=== PATIENT | female | born 1995 | race Caucasian/White ===

== ENCOUNTER 2017-12-28 18:36 | Emergency (ER) | payer MEDICAID ==
[~2017-12-28] VITALS: Ht 147.3 cm; Wt 83.9 kg
[2017-12-28 18:52] VITALS: BP 128/77
--- NOTE | 2017-12-28 18:56 | NUR ---
PT TRIAGED AND SENT TO ER LOBBY
--- NOTE | 2017-12-28 20:20 | NUR ---
Reassessed. No new complaints or changes.
--- NOTE | 2017-12-28 20:55 | NUR ---
PT BROUGHT BY WHEELCHAIR TO BED 2
--- NOTE | 2017-12-28 21:03 | NUR ---
PT C/O ABDOMINAL PAIN SINCE LAST NIGHT, +N/V 10/10 ALL OVER PAIN. STATES SHE TOOK 4 PERCOCET IN LAST 24 HOURS THAT WERE NOT HERS. STATES HER BACK STARTED HURTING AFTER SHE BENT DOWN TO PICK SOMETHING UP. ABD IS SOFT NON TENDER. BOWEL SOUNDS ACTIVE X 4 QUADRANTS. IN BED, PENDING MD VALLES.
[2017-12-28 21:56] LABS: APPEARANCE,URINE CLEAR (CLEAR); COLOR,URINE YELLOW (YELLOW)
[2017-12-28 21:57] LABS: BLOOD, URINE NEGATIVE (NEGATIVE); UGLUCOSE NEGATIVE (NEGATIVE)
[2017-12-28 21:58] LABS: BILIRUBIN,URINE NEGATIVE (NEGATIVE); LEUKOCYTE ESTERASE ,URINE NEGATIVE (NEGATIVE); NITRITE, URINE NEGATIVE (NEGATIVE)
[2017-12-28] MEDS ORDERED: NACL 0.9% 1,000 ML IV ONE (22:30)
[2017-12-28] MEDS ORDERED: ONDANSETRON 4 MG/2 ML VIAL IVP ONE (22:30)
[2017-12-28 23:38] VITALS: BP 119/70
== END 2017-12-28 23:40 | disposition home or self-care (01) ==
LOC: MED 18:36
DX: E86.0 Dehydration (principal); R11.2 Nausea with vomiting, unspecified; T39.1X5A Adverse effect of 4-Aminophenol derivatives, initial encounter; Y92.89 Other specified places as the place of occurrence of the external cause
CPT/HCPCS: 81003; 81025; 96361; 96374; 99284; J2405; J7030

== ENCOUNTER 2020-03-09 22:47 | Emergency (ER) | payer SELFPAY ==
[~2020-03-09] VITALS: Ht 149.9 cm; Wt 93.0 kg
[2020-03-09 22:49] VITALS: BP 122/75
--- NOTE | 2020-03-09 22:51 | NUR ---
to bed # 05 ambulatory
--- NOTE | 2020-03-09 23:08 | NUR ---
24 YR OLD FEMALE AOX4 WITH CHIEFT COMPLAINT OF LEFT EAR PAIN. PATIENT STATES LEFT EAR PAIN HAD A SUDDEN ONSET APPROXIMATELY 1 MONTH AGO AND HAS BEEN GOING ON AND OFF. PATIENT STATES NON-RADIATING 10/10 LEFT EAR PAIN. PATIENT STATED HAS NOT SEEN ANYONE ABOUT THE LEFT EAR PAIN SINCE IT STARTED. PATIENT DENIES OTHER DISCOMFORT. BED IS LOCKED IN LOWEST POSITION. HISTORY- NONE ALLERGIES- NONE
--- NOTE | 2020-03-09 23:15 | NUR ---
MIKHAIL BENOIT AT BEDSIDE FOR MEDICAL EVALUATION.
[2020-03-10 00:15] VITALS: BP 110/73
--- NOTE | 2020-03-10 00:15 | NUR ---
Patient discharged with v/s stable. Written and verbal after care instructions given and explained. Patient alert, oriented and verbalized understanding of instructions. Ambulatory with steady gait. All questions addressed prior to discharge. ID band removed. Patient advised to follow up with PMD. Rx of NAPROSYN, OFLOXACIN, AND DEBROX given. Patient educated on indication of medication including possible reaction and side effects. Opportunity to ask questions provided and answered.
== END 2020-03-10 00:15 | disposition home or self-care (01) ==
LOC: MED 22:47
DX: H61.22 Impacted cerumen, left ear (principal)
CPT/HCPCS: 99283

== ENCOUNTER 2020-08-21 15:18 | Emergency (ER) | payer MEDICAID ==
[~2020-08-21] VITALS: Ht 152.4 cm; Wt 89.4 kg
[2020-08-21 15:26] VITALS: BP 113/65
[2020-08-21] MEDS ORDERED: ONDANSETRON 4 MG ODT PO ONE (16:00)
[2020-08-21] MEDS ORDERED: ACETAMINOPHEN 325 MG TAB PO ONE (16:00)
[2020-08-21 16:24] LABS: BASOPHILS % (AUTO) 0.2 % (0.0-2.0); HEMOGLOBIN 14.3 g/dL (12.0-16.0); LYMPHOCYTES % (AUTO) 8.1 % (20.5-51.1); MEAN CORPUSCULAR HEMOGLOBIN 30 pg (27-31); MEAN CORPUSCULAR HGB CONC 33 g/dL (33-37); MEAN CORPUSCULAR VOLUME 90.1 fL (80-94); MONOCYTES # (AUTO) 0.7 K/uL (0.8-1.0); MONOCYTES % (AUTO) 6.2 % (1.7-9.3); NEUTROPHILS % (AUTO) 85.5 % (42.2-75.2); PLATELET COUNT (AUTO) 313 K/uL (140-450); RED BLOOD CELL COUNT(AUTO) 4.78 MIL/uL (4.20-5.40); RED CELL DISTRIBUTION WIDTH 13.7 % (11.6-13.7); WHITE BLOOD COUNT (AUTO) 11.7 K/uL (4.8-10.8)
[2020-08-21 16:43] LABS: ALBUMIN 4.5 g/dL (3.4-5.0); ANION GAP 14.6 (8-16); CARBON DIOXIDE 24.9 mmol/L (21-32); CREATININE 0.9 mg/dL (0.6-1.3); POTASSIUM 3.5 mmol/L (3.5-5.1); TOTAL BILIRUBIN 0.6 mg/dL (0.0-1.0)
[2020-08-21] MEDS ORDERED: KETOROLAC 30 MG/ML VIAL IVP ONE (17:25)
[2020-08-21] MEDS ORDERED: NACL 0.9% 1,000 ML IV ONE (17:25)
[2020-08-21] MEDS ORDERED: cefTRIAXone 1,000 MG VIAL ONE (20:51)
[2020-08-21] MEDS ORDERED: METR500T1 PO (21:20)
[2020-08-21] MEDS ORDERED: ONDA-24 SL (21:20)
[2020-08-21] MEDS ORDERED: CIPR500T4 PO (21:20)
[2020-08-21 21:45] VITALS: BP 113/65
== END 2020-08-21 21:45 | disposition home or self-care (01) ==
LOC: MED 15:18
DX: K52.9 Noninfective gastroenteritis and colitis, unspecified (principal); R11.2 Nausea with vomiting, unspecified; R19.7 Diarrhea, unspecified; Z79.899 Other long term (current) drug therapy
CPT/HCPCS: 36415; 74177; 80053; 81002; 81025; 83690; 85025; 96361; 96365; 99285; J0696; Q0162; Q9967

== ENCOUNTER 2021-08-24 14:03 | Emergency (ER) | payer MEDICAID ==
[~2021-08-24 14:03] MED LIST: CIPR500T4 PO; METR500T1 PO; ONDA-188 SL
--- NOTE | 2021-08-24 14:12 | NUR ---
pt name called at this time, no answer
--- NOTE | 2021-08-24 14:16 | NUR ---
pt name called at this time, no answer
--- NOTE | 2021-08-24 14:39 | NUR ---
pt name called at this time, no answer
--- NOTE | 2021-08-24 14:41 | NUR ---
lwbs at this time
== END 2021-08-24 14:12 | disposition left against medical advice (07) ==
LOC: MED 14:03
DX: H92.09 Otalgia, unspecified ear (principal); Z53.21 Procedure and treatment not carried out due to patient leaving prior to being seen by health care provider

== ENCOUNTER 2022-05-26 13:24 | Emergency (ER) | payer MEDICAID ==
[~2022-05-26] VITALS: Ht 152.4 cm; Wt 95.8 kg
[2022-05-26 13:31] VITALS: BP 113/76
[2022-05-26 14:32] LABS: BASOPHILS % (AUTO) 0.5 % (0.0-2.0); EOSINOPHILS # (AUTO) 0.1 K/uL (0-0.4); HEMATOCRIT 41.6 % (36-48); HEMOGLOBIN 13.8 g/dL (12.0-16.0); LYMPHOCYTES # (AUTO) 1.6 K/uL (2.5-16.5); LYMPHOCYTES % (AUTO) 24.7 % (20.5-51.1); MEAN CORPUSCULAR HEMOGLOBIN 29 pg (27-31); MEAN CORPUSCULAR HGB CONC 33 g/dL (33-37); MEAN CORPUSCULAR VOLUME 88.5 fL (80-94); MONOCYTES # (AUTO) 0.6 K/uL (0.8-1.0); MONOCYTES % (AUTO) 9.4 % (1.7-9.3); NEUTROPHILS # (AUTO) 4.2 K/uL (1.8-7.7); NEUTROPHILS % (AUTO) 64.4 % (42.2-75.2); PLATELET COUNT (AUTO) 334 K/uL (140-450); RED CELL DISTRIBUTION WIDTH 12.8 % (11.6-13.7); WHITE BLOOD COUNT (AUTO) 6.5 K/uL (4.8-10.8)
[2022-05-26 14:53] LABS: ALBUMIN 3.7 g/dL (3.4-5.0); ANION GAP 14.3 (8-16); CARBON DIOXIDE 28.4 mmol/L (21-32); CREATININE 0.8 mg/dL (0.6-1.3); POTASSIUM 3.7 mmol/L (3.5-5.1); TOTAL BILIRUBIN 0.3 mg/dL (0.0-1.0)
[2022-05-26 15:02] LABS: APPEARANCE,URINE CLEAR (CLEAR); BILIRUBIN,URINE NEGATIVE (NEGATIVE); BLOOD, URINE TRACE-I (NEGATIVE); COLOR,URINE YELLOW (YELLOW); LEUKOCYTE ESTERASE ,URINE 1+ (NEGATIVE); NITRITE, URINE NEGATIVE (NEGATIVE); UGLUCOSE NEGATIVE (NEGATIVE)
--- NOTE | 2022-05-26 16:53 | NUR ---
Mendy murillo in [facility] - 05/26/22 at 1700 by [email or web address] PT AMBULATED TO ER BED 8
--- NOTE | 2022-05-26 16:53 | NUR ---
PT AMBULATED TO ER BED 7
[2022-05-26] MEDS ORDERED: CEPH500C16 PO (17:49)
--- NOTE | 2022-05-26 17:51 | NUR ---
HELEN Rodriguez re-evaluating patient at bedside.
[2022-05-26] MEDS ORDERED: DOXY-487 PO (17:55)
[2022-05-26] MEDS ORDERED: cefTRIAXone 500 MG in LIDOCAINE MPF 1% 1 ML IM ONE (17:55)
[2022-05-26] MEDS ORDERED: VALA1TAB2 PO (17:55)
[2022-05-26] MEDS ORDERED: cefTRIAXone 500 MG VIAL ONE (18:04)
[2022-05-26] MEDS ORDERED: LIDOCAINE MPF 1% 5 ML ONE (18:05)
[2022-05-26 18:42] VITALS: BP 111/73
--- NOTE | 2022-05-26 18:42 | NUR ---
Patient discharged with v/s stable. Written and verbal after care instructions given. Patient alert, oriented and verbalized understanding of instructions. Ambulatory with steady gait. All questions addressed prior to discharge. ID band removed. Patient advised to follow up with PMD. Rx of KEFLEX, VALTREZ AND DOXYCYCLINE HYCLATE given. Opportunity to ask questions provided and answered. WORK NOTE HANDED TO PATIENT.
--- NOTE | 2022-05-26 19:05 | NUR ---
The patient's care was reviewed and supervised by Ju Dugan RN.
[2022-05-31] MEDS ORDERED: AMOX1TAB8 PO (16:48)
--- NOTE | 2022-05-31 17:00 | NUR ---
LATE ENTRY. RECEIVED POSITIVE AEROBIC CULTURE. FORM GIVEN TO DR JHA. TREATMENT APPROPRIATE. FORM PLACED IN BINDER
== END 2022-05-26 18:42 | disposition home or self-care (01) ==
LOC: MED 13:24
DX: N39.0 Urinary tract infection, site not specified (principal); L98.8 Other specified disorders of the skin and subcutaneous tissue; Z79.899 Other long term (current) drug therapy; Z79.2 Long term (current) use of antibiotics
CPT/HCPCS: 36415; 80053; 81001; 81025; 85025; 86592; 86631; 86632; 86694; 86703; 87070; 87075; 87086; 87252; 87491; 93005; 96372; 99284; J0696; J2001; 87186

== ENCOUNTER 2022-11-14 20:01 | Emergency (ER) | payer MEDICAID ==
[~2022-11-14] VITALS: Ht 149.9 cm; Wt 93.0 kg
[~2022-11-14 20:01] MED LIST changes: +CEPH500C16 PO; +DOXY-487 PO; +VALA1TAB2 PO
[2022-11-14 20:10] VITALS: BP 121/76; PULSE 71; RESP 17; TEMP 98; O2SAT 99
[2022-11-14 20:35] LABS: APPEARANCE,URINE CLEAR (CLEAR); BILIRUBIN,URINE NEGATIVE (NEGATIVE); BLOOD, URINE TRACE-I (NEGATIVE); COLOR,URINE YELLOW (YELLOW); LEUKOCYTE ESTERASE ,URINE TRACE (NEGATIVE); NITRITE, URINE NEGATIVE (NEGATIVE); PROTEIN,URINE NEGATIVE (NEGATIVE); UGLUCOSE NEGATIVE (NEGATIVE); UROBILINOGEN,URINE 0.2 EU/dL (0.2 - 1)
[2022-11-14 20:44] LABS: RBC,URINE 0-5 /HPF (0-5)
[2022-11-14 20:45] LABS: BACTERIA,URINE 1+ /HPF (None Seen); MUCUS,URINE 2+ /LPF (None Seen); TRICHOMONAS,URINE None Seen /HPF (None Seen); YEAST,URINE None Seen /HPF (None Seen)
[2022-11-14 20:47] LABS: BASOPHILS % (AUTO) 0.5 % (0.0-2.0); EOSINOPHILS # (AUTO) 0.1 K/uL (0-0.4); EOSINOPHILS % (AUTO) 1.7 % (0.0-4.0); HEMATOCRIT 36.8 % (36-48); HEMOGLOBIN 12.4 g/dL (12.0-16.0); LYMPHOCYTES # (AUTO) 2.2 K/uL (2.5-16.5); LYMPHOCYTES % (AUTO) 25.8 % (20.5-51.1); MEAN CORPUSCULAR HEMOGLOBIN 30 pg (27-31); MEAN CORPUSCULAR HGB CONC 34 g/dL (33-37); MEAN CORPUSCULAR VOLUME 87.8 fL (80-94); MONOCYTES # (AUTO) 0.8 K/uL (0.8-1.0); MONOCYTES % (AUTO) 9.3 % (1.7-9.3); NEUTROPHILS # (AUTO) 5.4 K/uL (1.8-7.7); NEUTROPHILS % (AUTO) 62.7 % (42.2-75.2); PLATELET COUNT (AUTO) 312 K/uL (140-450); RED BLOOD CELL COUNT(AUTO) 4.19 MIL/uL (4.20-5.40); RED CELL DISTRIBUTION WIDTH 12.7 % (11.6-13.7); WHITE BLOOD COUNT (AUTO) 8.6 K/uL (4.8-10.8)
[2022-11-14 21:04] LABS: ALBUMIN 3.5 g/dL (3.4-5.0); ANION GAP 13.5 (8-16); CALCIUM 8.8 mg/dL (8.5-10.1); CARBON DIOXIDE 24.9 mmol/L (21-32); CREATININE 1.4 mg/dL (0.6-1.3); POTASSIUM 3.4 mmol/L (3.5-5.1); TOTAL BILIRUBIN 0.4 mg/dL (0.0-1.0); TOTAL PROTEIN, SERUM 7.5 g/dL (6.4-8.2)
[2022-11-14] MEDS ORDERED: NITR100C7 PO (22:09)
[2022-11-14 22:42] VITALS: BP 121/76; PULSE 71; RESP 17; TEMP 98; O2SAT 99
== END 2022-11-14 22:42 | disposition home or self-care (01) ==
LOC: MED 20:01
DX: N39.0 Urinary tract infection, site not specified (principal); Z79.899 Other long term (current) drug therapy
CPT/HCPCS: 36415; 80053; 81001; 81025; 83690; 85025; 87086; 99283

== ENCOUNTER 2023-08-16 16:16 | Emergency (ER) | payer MEDICAID ==
[~2023-08-16] VITALS: Ht 149.9 cm; Wt 99.5 kg
[~2023-08-16 16:16] MED LIST changes: +NITR100C7 PO
[2023-08-16 17:06] VITALS: BP 119/67; PULSE 81; RESP 17; TEMP 97.8; O2SAT 97
[2023-08-16 20:03] VITALS: BP 119/67; PULSE 81; RESP 17; TEMP 97.8; O2SAT 97
== END 2023-08-16 20:03 | disposition left against medical advice (07) ==
LOC: MED 16:16
DX: R22.43 Localized swelling, mass and lump, lower limb, bilateral (principal); Z53.21 Procedure and treatment not carried out due to patient leaving prior to being seen by health care provider